=== PATIENT | female | born 1935 | race Caucasian/White ===

== ENCOUNTER → 2017-10-14 | Outpatient (CLI) | payer OTHER ==
[~2017-10-14] MED LIST: AMLO5 PO; CALCIT950; CALMAGZIN PO; ESTMED1.5T; Echinacea & Go1 EACH PO; Estradiol0.5 MG PO; Flomax0.4 MG PO; GINKGO BILOBA30 MG PO; GLUCHON; HAIR, SKIN & N1 EAC1 PO; Hair, Skin & N1 EACH PO; LEG CRAMP RELIEF PO; LEVE500; MACULAR PROTECT PO; MAGN84; MEDR2.5; MEDR2.5 PO; MELA3 PO; MSM1000; MULVITMINF; PRAV20 PO; Percocet 5-3251 EACH PO; TOCO1000; TRAM50; VITAMIN B12-FO1 EACH PO; Vitamin D400 UNI1 PO; Zofran4 MG PO
== END | disposition home or self-care (01) ==
LOC: LAB SHORT 18:01 → LAB 18:01
DX: M54.9 Dorsalgia, unspecified (principal)
CPT/HCPCS: 87077; 87086; 87186

== ENCOUNTER 2018-04-10 05:42 | Emergency (ER) | payer MEDICARE, OTHER ==
[~2018-04-10] VITALS: Ht 162.6 cm; Wt 57.6 kg
[2018-04-10 06:32] LABS: BASOPHILS ABSOLUTE AUTO 0.04 K/mm3 (0.00-0.23); BASOPHILS PERCENT AUTO 1 % (0-2); EOSINOPHILS ABSOLUTE AUTO 0.18 K/mm3 (0.00-0.68); EOSINOPHILS PERCENT AUTO 4 % (0-6); Hematocrit 43.9 % (33.0-51.0); Hemoglobin 14.8 g/dL (11.5-16.0); IMMATURE GRAN ABSOLUTE AUTO 0.01 K/mm3 (0.00-0.10); IMMATURE GRAN PERCENT AUTO 0 % (0-1); LYMPHOCYTES ABSOLUTE AUTO 0.95 K/mm3 (0.84-5.20); LYMPHOCYTES PERCENT AUTO 19 % (21-46); MONOCYTES ABSOLUTE AUTO 0.51 K/mm3 (0.16-1.47); MONOCYTES PERCENT AUTO 10 % (4-13); Mean Corpuscular HGB 32.2 pg (26.0-34.0); Mean Corpuscular HGB Conc 33.7 g/dL (31.5-36.5); Mean Corpuscular Volume 96 fL (80-100); NEUTROPHILS ABSOLUTE AUTO 3.28 K/mm3 (1.96-9.15); NEUTROPHILS PERCENT AUTO 66 % (41-73); Platelet Count 209 K/mm3 (150-400); RDW Coefficient Variation 12.3 % (11.7-14.2); RDW Standard Deviation 43.4 fL (35.1-46.3); Red Blood Cell Count 4.59 M/mm3 (3.80-5.20); White Blood Cell Count 4.97 K/mm3 (4.00-11.30)
[2018-04-10 06:51] LABS: Anion Gap 7 mmol/L (6-16); Blood Urea Nitrogen 16 mg/dL (8-24); CO2, Blood 25 mmol/L (21-32); Calcium, Blood 9.6 mg/dL (8.5-10.1); Chloride, Blood 110 mmol/L (98-108); Creatinine, Blood 0.59 mg/dL (0.40-1.00); Glomerular Filtration Rate >60 (60-); Glucose, Blood 97 mg/dL (70-99); Potassium, Blood 3.9 mmol/L (3.5-5.5); Sodium, Blood 142 mmol/L (136-145)
[2018-04-10 08:36] LABS: Source, Urine Catheter
[2018-04-10 08:39] LABS: Bilirubin, Urine Neg (Neg); Blood, Urine Neg (Neg); Glucose Qualitative, Urine Neg (Neg); Ketones, Urine Neg (Neg); Leukocyte Esterase, Urine Neg (Neg); Nitrite, Urine Neg (Neg); Protein, Urine Neg (Neg); Urobilinogen, Urine NORM (Normal)
[2018-04-10 09:11] LABS: Appearance, Urine Hazy (Clear); Color, Urine Yellow (P-Yellow)
[2018-04-10 09:12] LABS: Amorphous Mod (0-Heavy); Bacteria Not Seen /hpf; Red Blood Cells, Urine Not Seen /hpf (0-2); Squamous Epithelial Cells Not Seen /hpf (Few); White Blood Cells, Urine 0-2 /hpf (0-5)
== END 2018-04-10 09:45 | disposition home or self-care (01) ==
LOC: ER 05:42
PROVIDERS: Emergency Medicine
DX: M25.552 Pain in left hip (principal); M25.551 Pain in right hip; M79.644 Pain in right finger(s); R07.89 Other chest pain; I10 Essential (primary) hypertension; G40.909 Epilepsy, unspecified, not intractable, without status epilepticus; Z79.899 Other long term (current) drug therapy; K21.9 Gastro-esophageal reflux disease without esophagitis; W18.30XA Fall on same level, unspecified, initial encounter
CPT/HCPCS: 71111; 72170; 80048; 81001; 85025; 99284-25; P9612

== ENCOUNTER → 2018-04-28 | Outpatient (CLI) | payer OTHER ==
[2018-04-28 19:25] LABS: Bilirubin, Urine Neg (Neg); Blood, Urine Neg (Neg); Glucose Qualitative, Urine Neg (Neg); Ketones, Urine Neg (Neg); Leukocyte Esterase, Urine 1+ (Neg); Nitrite, Urine Neg (Neg); Protein, Urine Neg (Neg); Specific Gravity, Urine 1.015 (1.003-1.022); Urobilinogen, Urine NORM (Normal); pH, Urine 6.5 (5.0-8.0)
[2018-04-28 19:59] LABS: Appearance, Urine Hazy (Clear); Color, Urine Yellow (P-Yellow)
[2018-04-28 20:00] LABS: Bacteria Rare /hpf; Calcium Oxalate Crystals Mod /hpf; Red Blood Cells, Urine Not Seen /hpf (0-2); Squamous Epithelial Cells Many /hpf (Few); White Blood Cells, Urine 0-2 /hpf (0-5)
== END | disposition home or self-care (01) ==
LOC: LAB 18:18 → LAB SHORT 18:18
DX: M54.9 Dorsalgia, unspecified (principal)
CPT/HCPCS: 81001; 87077; 87086; 87186

== ENCOUNTER → 2018-06-16 | Outpatient (CLI) | payer OTHER ==
[~2018-06-16] MED LIST changes: +ALPR.25 PO; +Keppra750 MG PO; -LEVE500
[2018-06-18 16:06] LABS: HPV 16 Negative (Negative); HPV 18 Negative (Negative); HPV OTHER HR TYPES Negative (Negative)
== END | disposition home or self-care (01) ==
LOC: LAB SHORT 17:32 → LAB 17:32
PROVIDERS: Nurse Practitioner Women's Health
DX: Z12.4 Encounter for screening for malignant neoplasm of cervix (principal)
CPT/HCPCS: 87624; G0123

== ENCOUNTER 2018-08-15 12:03 | Emergency (ER) | payer OTHER ==
[~2018-08-15] VITALS: Ht 157.5 cm; Wt 68.0 kg
[2018-08-15 12:44] LABS: Source, Urine Catheter
[2018-08-15 12:48] LABS: BASOPHILS ABSOLUTE AUTO 0.04 K/mm3 (0.00-0.23); BASOPHILS PERCENT AUTO 1 % (0-2); EOSINOPHILS ABSOLUTE AUTO 0.14 K/mm3 (0.00-0.68); EOSINOPHILS PERCENT AUTO 3 % (0-6); Hematocrit 45.6 % (33.0-51.0); Hemoglobin 15.1 g/dL (11.5-16.0); IMMATURE GRAN ABSOLUTE AUTO 0.01 K/mm3 (0.00-0.10); IMMATURE GRAN PERCENT AUTO 0 % (0-1); LYMPHOCYTES PERCENT AUTO 20 % (21-46); MONOCYTES ABSOLUTE AUTO 0.48 K/mm3 (0.16-1.47); MONOCYTES PERCENT AUTO 10 % (4-13); Mean Corpuscular HGB 32.5 pg (26.0-34.0); Mean Corpuscular HGB Conc 33.1 g/dL (31.5-36.5); Mean Corpuscular Volume 98 fL (80-100); NEUTROPHILS PERCENT AUTO 66 % (41-73); Platelet Count 209 K/mm3 (150-400); RDW Coefficient Variation 12.3 % (11.7-14.2); RDW Standard Deviation 44.3 fL (35.1-46.3); Red Blood Cell Count 4.65 M/mm3 (3.80-5.20); White Blood Cell Count 4.97 K/mm3 (4.00-11.30)
[2018-08-15 12:52] LABS: Bilirubin, Urine Neg (Neg); Blood, Urine Neg (Neg); Glucose Qualitative, Urine Neg (Neg); Ketones, Urine Neg (Neg); Leukocyte Esterase, Urine 1+ (Neg); Nitrite, Urine Neg (Neg); Protein, Urine Neg (Neg); Urobilinogen, Urine NORM (Normal)
[2018-08-15 13:03] LABS: Appearance, Urine Clear (Clear); Color, Urine Yellow (P-Yellow); White Blood Cells, Urine 0-2 /hpf (0-5)
[2018-08-15 13:04] LABS: Bacteria Rare /hpf; Red Blood Cells, Urine 0-2 /hpf (0-2); Squamous Epithelial Cells Few /hpf (Few)
[2018-08-15 13:10] LABS: Alanine Aminotransfer (ALT/SGP 28 U/L (12-78); Albumin/Globulin Ratio 1.1 (0.8-1.8); Alk Phos 64 U/L (50-136); Anion Gap 7 mmol/L (6-16); Aspartate Aminotrans (AST/SGOT 18 U/L (12-37); Bilirubin, Total 0.4 mg/dL (0.1-1.0); Blood Urea Nitrogen 18 mg/dL (8-24); Bun/Creatinine Ratio 27.4 (12.0-20.0); CO2, Blood 26 mmol/L (21-32); Calcium, Blood 9.6 mg/dL (8.5-10.1); Chloride, Blood 109 mmol/L (98-108); Creatinine, Blood 0.66 mg/dL (0.40-1.00); Globulin, Blood 3.8 g/dL (2.2-4.0); Glomerular Filtration Rate >60 (60-); Glucose, Blood 102 mg/dL (70-99); Sodium, Blood 142 mmol/L (136-145); Total Protein, Blood 7.8 g/dL (6.4-8.2)
== END 2018-08-15 14:40 | disposition home or self-care (01) ==
LOC: ER 12:03
PROVIDERS: Emergency Medicine
DX: R53.1 Weakness (principal); I10 Essential (primary) hypertension; G40.909 Epilepsy, unspecified, not intractable, without status epilepticus; F03.90 Unspecified dementia, unspecified severity, without behavioral disturbance, psychotic disturbance, mood disturbance, and anxiety; Z85.3 Personal history of malignant neoplasm of breast; Z91.018 Allergy to other foods; Z91.09 Other allergy status, other than to drugs and biological substances; Z79.899 Other long term (current) drug therapy
CPT/HCPCS: 36415; 51701; 70450; 80053; 81001; 85025; 87086; 93005; 93010; 99285-25

== ENCOUNTER 2019-01-15 17:31 | Emergency (ER) | payer OTHER ==
[~2019-01-15] VITALS: Ht 160 cm; Wt 63.5 kg
[2019-01-15 18:12] LABS: BASOPHILS ABSOLUTE AUTO 0.04 K/mm3 (0.00-0.23); BASOPHILS PERCENT AUTO 1 % (0-2); EOSINOPHILS ABSOLUTE AUTO 0.14 K/mm3 (0.00-0.68); EOSINOPHILS PERCENT AUTO 3 % (0-6); Hematocrit 38.5 % (33.0-51.0); Hemoglobin 12.8 g/dL (11.5-16.0); IMMATURE GRAN ABSOLUTE AUTO 0.01 K/mm3 (0.00-0.10); IMMATURE GRAN PERCENT AUTO 0 % (0-1); LYMPHOCYTES ABSOLUTE AUTO 1.06 K/mm3 (0.84-5.20); LYMPHOCYTES PERCENT AUTO 23 % (21-46); MONOCYTES ABSOLUTE AUTO 0.58 K/mm3 (0.16-1.47); MONOCYTES PERCENT AUTO 13 % (4-13); Mean Corpuscular HGB 33.2 pg (26.0-34.0); Mean Corpuscular HGB Conc 33.2 g/dL (31.5-36.5); Mean Corpuscular Volume 100 fL (80-100); Mean Platelet Volume 10.6 fL (9.1-12.4); NEUTROPHILS ABSOLUTE AUTO 2.75 K/mm3 (1.96-9.15); NEUTROPHILS PERCENT AUTO 60 % (41-73); Platelet Count 225 K/mm3 (150-400); RDW Coefficient Variation 12.6 % (11.7-14.2); RDW Standard Deviation 46.4 fL (35.1-46.3); Red Blood Cell Count 3.86 M/mm3 (3.80-5.20); White Blood Cell Count 4.58 K/mm3 (4.00-11.30)
[2019-01-15 18:25] LABS: Alanine Aminotransfer (ALT/SGP 29 U/L (12-78); Albumin, Blood 3.9 g/dL (3.4-5.0); Alk Phos 64 U/L (50-136); Anion Gap 6 mmol/L (6-16); Aspartate Aminotrans (AST/SGOT 18 U/L (12-37); Bilirubin, Total 0.4 mg/dL (0.1-1.0); Blood Urea Nitrogen 29 mg/dL (8-24); Bun/Creatinine Ratio 36.7 (12.0-20.0); CO2, Blood 25 mmol/L (21-32); Chloride, Blood 109 mmol/L (98-108); Creatinine, Blood 0.79 mg/dL (0.40-1.00); Glomerular Filtration Rate >60 (60-); Glucose, Blood 121 mg/dL (70-99); Potassium, Blood 3.8 mmol/L (3.5-5.5); Sodium, Blood 140 mmol/L (136-145); Total Protein, Blood 7.9 g/dL (6.4-8.2)
[2019-01-15 19:56] LABS: Source, Urine Clean Catch
[2019-01-15 20:01] LABS: Bilirubin, Urine Neg (Neg); Blood, Urine 3+ (Neg); Glucose Qualitative, Urine Neg (Neg); Ketones, Urine Neg (Neg); Leukocyte Esterase, Urine Neg (Neg); Nitrite, Urine Neg (Neg); Protein, Urine 1+ (Neg); Urobilinogen, Urine NORM (Normal)
[2019-01-15 20:08] LABS: Amorphous Light (0-Heavy); Appearance, Urine Hazy (Clear); Bacteria Few /hpf; Color, Urine Yellow (P-Yellow); Mucus Light (0-Heavy); Red Blood Cells, Urine 25-50 /hpf (0-2); Squamous Epithelial Cells Many /hpf (Few); White Blood Cells, Urine 0-2 /hpf (0-5)
== END 2019-01-15 22:31 | disposition home or self-care (01) ==
LOC: ER 17:31
PROVIDERS: Internal Medicine
DX: R41.0 Disorientation, unspecified (principal); L98.9 Disorder of the skin and subcutaneous tissue, unspecified; I10 Essential (primary) hypertension; F03.90 Unspecified dementia, unspecified severity, without behavioral disturbance, psychotic disturbance, mood disturbance, and anxiety; Z85.3 Personal history of malignant neoplasm of breast; Z91.018 Allergy to other foods; Z91.048 Other nonmedicinal substance allergy status; Z79.899 Other long term (current) drug therapy
CPT/HCPCS: 36415; 70450; 80053; 81001; 85025; 93005; 93010; 99285-25; A9270-GY

== ENCOUNTER → 2019-06-17 | Outpatient (CLI) | payer OTHER ==
[2019-06-17 17:13] LABS: Bilirubin, Urine Neg (Neg); Blood, Urine Neg (Neg); Glucose Qualitative, Urine Neg (Neg); Ketones, Urine Neg (Neg); Leukocyte Esterase, Urine Neg (Neg); Nitrite, Urine Pos (Neg); Protein, Urine Neg (Neg); Urobilinogen, Urine NORM (Normal)
[2019-06-17 17:33] LABS: Appearance, Urine Hazy (Clear); Color, Urine Yellow (P-Yellow)
[2019-06-17 17:38] LABS: Amorphous Mod (0-Heavy); Bacteria Rare /hpf; Red Blood Cells, Urine Not Seen /hpf (0-2); Squamous Epithelial Cells Few /hpf (Few); White Blood Cells, Urine Not Seen /hpf (0-5)
== END | disposition home or self-care (01) ==
LOC: LAB SHORT 15:23 → LAB 15:23
DX: N39.0 Urinary tract infection, site not specified (principal)
CPT/HCPCS: 81001; 87077; 87086; 87186

== ENCOUNTER 2019-07-01 20:58 | Inpatient (IN) | payer OTHER ==
[~2019-07-01] VITALS: Ht 167.6 cm; Wt 77.1 kg
[~2019-07-01 20:58] MED LIST changes: -MEDR2.5
[2019-07-01] MEDS ORDERED: IBU600 MG PO (21:59)
[2019-07-01 23:19] LABS: Source, Urine Clean Catch
[2019-07-01 23:23] LABS: Bilirubin, Urine Neg (Neg); Blood, Urine Neg (Neg); Glucose Qualitative, Urine Neg (Neg); Ketones, Urine Neg (Neg); Leukocyte Esterase, Urine 2+ (Neg); Nitrite, Urine Neg (Neg); Protein, Urine Neg (Neg); Urobilinogen, Urine NORM (Normal)
[2019-07-01 23:24] LABS: Appearance, Urine Hazy (Clear); Color, Urine Yellow (P-Yellow)
[2019-07-01 23:30] LABS: Amorphous Heavy (0-Heavy); Bacteria Mod /hpf; Red Blood Cells, Urine Not Seen /hpf (0-2); Squamous Epithelial Cells Not Seen /hpf (Few)
[2019-07-02 01:18] LABS: BASOPHILS ABSOLUTE AUTO 0.02 K/mm3 (0.00-0.23); BASOPHILS PERCENT AUTO 0 % (0-2); EOSINOPHILS ABSOLUTE AUTO 0.02 K/mm3 (0.00-0.68); EOSINOPHILS PERCENT AUTO 0 % (0-6); Hematocrit 36.8 % (33.0-51.0); Hemoglobin 12.3 g/dL (11.5-16.0); IMMATURE GRAN ABSOLUTE AUTO 0.07 K/mm3 (0.00-0.10); IMMATURE GRAN PERCENT AUTO 1 % (0-1); LYMPHOCYTES ABSOLUTE AUTO 0.78 K/mm3 (0.84-5.20); LYMPHOCYTES PERCENT AUTO 8 % (21-46); MONOCYTES ABSOLUTE AUTO 0.64 K/mm3 (0.16-1.47); MONOCYTES PERCENT AUTO 6 % (4-13); Mean Corpuscular HGB 31.8 pg (26.0-34.0); Mean Corpuscular HGB Conc 33.4 g/dL (31.5-36.5); Mean Corpuscular Volume 95 fL (80-100); Mean Platelet Volume 10.3 fL (9.1-12.4); NEUTROPHILS ABSOLUTE AUTO 8.55 K/mm3 (1.96-9.15); NEUTROPHILS PERCENT AUTO 85 % (41-73); Platelet Count 196 K/mm3 (150-400); RDW Coefficient Variation 12.9 % (11.7-14.2); RDW Standard Deviation 45.7 fL (35.1-46.3); Red Blood Cell Count 3.87 M/mm3 (3.80-5.20); White Blood Cell Count 10.08 K/mm3 (4.00-11.30)
[2019-07-02 01:39] LABS: Alanine Aminotransfer (ALT/SGP 19 U/L (12-78); Albumin, Blood 3.7 g/dL (3.4-5.0); Albumin/Globulin Ratio 0.9 (0.8-1.8); Alk Phos 82 U/L (50-136); Anion Gap 10 mmol/L (6-16); Aspartate Aminotrans (AST/SGOT 19 U/L (12-37); Bilirubin, Total 0.8 mg/dL (0.1-1.0); Blood Urea Nitrogen 18 mg/dL (8-24); CO2, Blood 20 mmol/L (21-32); Calcium, Blood 9.2 mg/dL (8.5-10.1); Chloride, Blood 111 mmol/L (98-108); Creatinine, Blood 0.78 mg/dL (0.40-1.00); Globulin, Blood 3.9 g/dL (2.2-4.0); Glomerular Filtration Rate >60 (60-); Glucose, Blood 139 mg/dL (70-99); Potassium, Blood 3.7 mmol/L (3.5-5.5); Sodium, Blood 141 mmol/L (136-145); Total Protein, Blood 7.6 g/dL (6.4-8.2)
[2019-07-02] MEDS ORDERED: Oyster Shell C500 MG PO (04:03)
[2019-07-02] MEDS ORDERED: DOCU100 PO (04:06)
[2019-07-02] MEDS ORDERED: Echinacea80 MG PO (04:08)
[2019-07-02] MEDS ORDERED: ESCI10 PO (04:11)
[2019-07-02] MEDS ORDERED: GINKGO BILOBA30 MG PO (05:06)
[2019-07-02] MEDS ORDERED: MAGNESIUM OXID500 MG PO (05:11)
[2019-07-02] MEDS ORDERED: LOPE2C PO (05:12)
[2019-07-02] MEDS ORDERED: LOPE2C (05:13)
[2019-07-02] MEDS ORDERED: MEDR5 PO (05:15)
[2019-07-02] MEDS ORDERED: MELATONIN5 M1 PO (05:17)
[2019-07-02] MEDS ORDERED: Vitamin B-121000 MCG PO (05:18)
[2019-07-02] MEDS ORDERED: VITAMIN D325 MCG PO (05:20)
--- NOTE | 2019-07-02 07:26 | NUR ---
SHIFT SUMMARY PT WAS A NEW ADMIT DURING THE NIGHT. SHE WAS ADMITTED AFTER AN UNWITNESSED FALL AT [facility]. PT HAS DEMENTIA, AND YELLS AND SCREAMS WHENEVER TOUCHED OR CARE IS ATTEMPTED. ON ADMISSION, PT WAS INCONSOLIBLE AND HAD ALREADY RECEIVED PAIN MEDS. THE HOSPITALIST DR MCNEILL ORDERED A OT DOSE OF ATIVAN. PT SLEPT WELL AFTER MEDICATING. SHE WAS MEDICATED ONCE FOR RUE PAIN THIS AM WITH PRN IV MORPHINE. VITALS STABLE. JONES PATENT AND DRAINING. NO OTHER ACUTE CHANGES IN PT CONDITION NOTED SINCE ADMISSION. REPORT GIVEN TO ONCOMING RN.
--- NOTE | 2019-07-02 16:24 | NUR ---
Initial spiritual care note: Mrs. Nelson was sleeping. she opened eyes briefly to voice, but could not stay awake or engage. She appears comfortable and peaceful. Prayed at bedisde. I will remain available.
--- NOTE | 2019-07-02 17:36 | NUR ---
SUMMARY PT RESTING QUIETLY IN BED, SCREAMS AND CALLS OUT WHEN ANY CARES DONE WITH HER, PT HAD TO BE FED BREAKFAST, PT REFUSED LUNCH, PT MED PER EMAR FOR PAIN, R SHOULDER IMMOBILIZER PLACED, SPOKE WITH SPOUSE ON THE PHONE, CARE MANAGEMENT SPOKE WITH THE SON ON THE PHONE, POSSIBILE DC BACK TO [facility] TOMORROW, VSS, WILL CONT TO MONITOR
--- NOTE | 2019-07-02 23:43 | NUR ---
PT APPEARS SCARED, ANXIOUS, UNCOMFORTABLE. PUSHING STAFF AWAY. VERY RESTLESS. PT REMOVING CLOTHES, ATTENDS, AND BEDDING. NOT REDIRECTABLE. PT SPIT MEDS OUT. NOT SWALLOWING FLUIDS OR APPLESAUCE. ALPRAZOLAM PO GIVEN DISSOLVED IN WATER INTO PT'S CHEEK W/LITTLE EFFECT. CALL TO HOSPITALIST CAMILA STANFORD NP. RECIEVED ORDER FOR ONE TIME ATIVAN AND IV KEPPRA DUE TO SPITTING HS KEPPRA DOSE OUT.
--- NOTE | 2019-07-03 06:44 | NUR ---
SHIFT SUMMARY: VSS. AFEB. A/OX1. SLEPT THROUGH MOST OF THE NIGHT EXCEPT WHEN INTERACTED WITH. MORPHINE ADMINISTERED FOR CRYING, MOANING AND HOLDING R SHOULDER YELLING "NO" AT STAFF INDICATION OF PAIN, HELPFUL. F/C PATENT AND DRAINING CLEAR, DARK YELLOW URINE TO GRAVITY. BED LOW, BED ALARM ON, FREQUENT CHECKS. PT DOES NOT CALL OUR OR USE CALL BUTTON WHEN IN NEED OF ASSIST. NO ACUTE CHANGES OVERNIGHT. WILL CONT TO MONITOR.
--- NOTE | 2019-07-03 10:30 | NUR ---
Initial palliative care consult: Lilly is an 83 year old with a history of severe dementia, seizures, HTN, right breast cancer. She lives at [facility] and had a fall. She currently has a right humeral fracture and an acute on chronic subdural hematoma. She currently has an immobilizer on her right arm. Lilly appeared very uncomfortable when this typewriter assembly and parts inspector entered her room. She is attempting to remove the immobilizer and is laying sideways in her bed. Left inner forearm IV site is infiltrated. IVF stopped and IV dc'd intact. Restarted a new IV in the outer left forearm with assistance from the BSS SOLUTION ARCHITECT. Lilly is tachypnic and appears to be painful. Nursing notified of IV infiltration, new IV and pt's pain. Nursing medicated pt for pain with IV pain medication. Pt appeared much less anxious and her respirations became less labored after pain medication was administered. Will plan to contact MD for PO pain med alternative. Nursing reports plan it to manage pt's humeral fracture with immobilizer and no surgical intervention. PC to remain available for symptom management.
--- NOTE | 2019-07-03 12:03 | NUR ---
UPDATED SON SPOKE WITH CLARENCE VILLALPANDO ON THE PHONE, UPDATED HIM THAT THE PT WILL BE STAYING FOR A FEW DAYS FOR IV ANTIBIOTICS
--- NOTE | 2019-07-03 17:02 | NUR ---
SUMMARY PT REMAINS CONFUSED T/O THE DAY, CALLS OUT AND YELLS WHENEVER ANY CARES ARE DONE, PT NEEDS TO BE FED, TAKES PILLS CRUSHED IN APPLESAUCE AFTER COAXING, SPOKE WITH HER SON KWASI ON THE PHONE TODAY WITH UPDATES, PT CONT TO PULL OFF THE SHOULDER IMMOBILIZER, DOES NOT ALLOW FOR IT TO BE PLACED BACK ON DESPITE MULTIPLE ATTEMPTS, PT CALMER WITH IT OFF, PT RESISTANT TO CARES AT TIMES, VSS, WILL CONT TO MONITOR
--- NOTE | 2019-07-03 19:00 | NUR ---
ASSUMED CARE RECEIVED REPORT FROM CARLA PERKINS. ASSUMED CARE OF PT. COMFORTABLE WHEN UNDISTURBED, SCREAMS AT STAFF WITH CARES AND REPOSITIONING. NO S/S ACUTE DISTRESS NOTED AT THIS TIME, ASSISTED TO REPOSITION IN BED, REPLACE ATTENDS PULLED OFF BY PT. PT LEFT IN POSITION OF COMFORT, CALL LIGHT IN REACH, BED IN LOWEST POSITION WITH ALARMS ON. WILL CONTINUE TO MONITOR.
--- NOTE | 2019-07-03 22:00 | NUR ---
2200 THIS RN IN ROOM FINDING PT CARE HOME OOB, CLIMBING OVER SIDERAILS. THIS RN HAD PREVIOUSLY MEDICATED FOR S/S PAIN. THIS RN AND SECOND RN IN ROOM REPOSITIONING PT, ELECT EQUIP MAINT ENG THEN ENTERED ROOM. PT SCREAMING AT STAFF, FLAILING ARMS AND PUSHING STAFF AWAY. DRYWALL SPRAYER IN ROOM ASSESSING SITUATION. DISCUSSED NEED FOR PT TO BE TRANSPORTED TO THE SC[facility] FOR FURTHER MONITORING. THIS RN SPEAKING TO VY JENSEN, REGARDING PT'S BEHAVIOR. ORDERS RECEIVED. REPORT GIVEN TO CARLA DENISE.
--- NOTE | 2019-07-03 22:40 | NUR ---
PATIENT TRANSFER FROM ROOM 342. REPORT RECEIVED FROM PATRICK AGUIRRE.
--- NOTE | 2019-07-03 22:59 | NUR ---
PATIENT RESTING IN BED AFTER IV ATIVAN 0.5 MG GIVEN PRIOR TO TRANSFER. PATIENT NOT SCREAMING AT THIS TIME. ADVANCE DEMENTIA. BED ALARM ACTIVATED.
--- NOTE | 2019-07-04 03:47 | NUR ---
SHIFT SUMMARY PATIENT HAD NO ACUTE CHANGES OBSERVED. TRANSFER FROM ROOM 342. NOT ORIENTED WITH HX ADVANCED DEMENTIA. BEDREST. PIV REMAINS INTACT. PATIENT RECEIVED 0.5 MG IV ATIVAN PRIOR TO ROOM TRANSFER AND ABLE TO SLEEP. NO SCREAMING AT THIS TIME. REFUSED RIGHT SHOULDER IMMOBILIZER. TAKES MEDICATION CRUSHED IN APPLE SAUCE. VSS/AFEBRILE. NO BP ON RIGHT ARM. NO S/SX OF SOB AND N/V. BED ALARM ACTIVATED. CALL LIGHT IN REACH. BED IN LOWEST POSITION. WILL CONTINUE TO MONITOR UNTIL DAY SHIFT NURSE ASSUMES CARE.
[2019-07-04 07:06] LABS: BASOPHILS ABSOLUTE AUTO 0.02 K/mm3 (0.00-0.23); BASOPHILS PERCENT AUTO 0 % (0-2); EOSINOPHILS ABSOLUTE AUTO 0.03 K/mm3 (0.00-0.68); EOSINOPHILS PERCENT AUTO 0 % (0-6); Hematocrit 37.8 % (33.0-51.0); Hemoglobin 12.4 g/dL (11.5-16.0); IMMATURE GRAN ABSOLUTE AUTO 0.02 K/mm3 (0.00-0.10); IMMATURE GRAN PERCENT AUTO 0 % (0-1); LYMPHOCYTES ABSOLUTE AUTO 1.11 K/mm3 (0.84-5.20); LYMPHOCYTES PERCENT AUTO 16 % (21-46); MONOCYTES ABSOLUTE AUTO 0.58 K/mm3 (0.16-1.47); MONOCYTES PERCENT AUTO 8 % (4-13); Mean Corpuscular HGB 31.4 pg (26.0-34.0); Mean Corpuscular HGB Conc 32.8 g/dL (31.5-36.5); Mean Corpuscular Volume 96 fL (80-100); Mean Platelet Volume 10.3 fL (9.1-12.4); NEUTROPHILS ABSOLUTE AUTO 5.19 K/mm3 (1.96-9.15); NEUTROPHILS PERCENT AUTO 75 % (41-73); Platelet Count 201 K/mm3 (150-400); RDW Coefficient Variation 12.7 % (11.7-14.2); RDW Standard Deviation 45.2 fL (35.1-46.3); Red Blood Cell Count 3.95 M/mm3 (3.80-5.20); White Blood Cell Count 6.95 K/mm3 (4.00-11.30)
--- NOTE | 2019-07-04 14:34 | NUR ---
Clinical Visit: Pt resting comfortably. She has been given ativan and morphine for treatment of anxiety and pain. Nurse states that she has been sleeping restfully since medication. Without medication treatment, pt is very restless and scared. She has no orientation to where she is, and does not recognize anyone around her. Additionally, she is in extreme pain when untreated with pain medications. Pt was given Denver once by the nurse today with minimal, short term relief. Morphine seems to help the pt most with her discomfort at this time. Call placed to the pt's son, Jose. Questions regarding care are answered. He is very concerned about her wellbeing and states that his father is very distressed over not being able to see her for the last two months for COVID precautions. Reviewed the pt's symptoms with Jose. He is requesting a muscle relaxer so that "she would be too weak to do anything that would hurt herself." Reviewed the medications given at this time. Instructed that Ativan has been given for anxiety. He is concerned about narcotic medications. Denver and morphine reviewed. Pt has required narcotics for the amount of pain she has been in. The hope is that she will gradually wean off of those medications as she heals. Pt is a full assist at meals and requires maximum help to eat. She cannot get the spoon or fork to her mouth and this has to be done for her. Discussed advanced care planning. Reviewed hospice qualifications for dementia patients and trajectory of disease process. He is open to the discussion and asks questions. Instructed to discuss with pt's PCP about when it would be appropriate to start a hospice care plan. Reviewed nurse visits, philosophy, and symptom management. Instructed that if this injury causes extraordinary pain and suffering, then hospice can help treat symptoms. Pt is at end stage disease at this time and would qualify. This information is also given to the son. Pt has an appropriate POLST form on file. Palliative care will remain available for symptom management. Pt does not swallow medications well, so pt may benefit from liquid, SL forms of ativan and morphine if discharged with pain issues and this is the only medication that is effective.
--- NOTE | 2019-07-04 15:25 | NUR ---
PT NOTED TO HAVE VERY POOR ORAL INTAKE, PT HAS NOT VOIDED YET THIS SHIFT. BLADDER SCAN X2 COMPLETED WITH RESULTS OF 233 AND [address]ML[address] SPO[address] AWAN AND ORDERS RECEIVED FOR NS AT 100ML/HR AT THIS TIME.
--- NOTE | 2019-07-04 16:40 | NUR ---
SHIFT SUMMARY- PT ORIENTED TO SELF ONLY. PT FEARFUL AND CRIES OUT WHENEVER TOUCHED. PRN ATIVAN GIVEN X1, PRN MORPHINE AND NORCO GIVEN X1 FOR PAIN TO SYED. PT PULLS ON IMMOBILIZER FREQUENTLY. LS CLEAR/ DIMINISHED IN THE BASES, ON RA. ABD MODERATE DISTENTION. PT HAS VERY POOR PO INTAKE, NEEDS FEEDING ASSISTANCE. BLADDER SCAN OF 233 AND 304 DONT THIS SHIFT. PT STARTED ON NS AT 100ML/HR. PALLIATIVE CARE CONSULTED AND CALLED AND SPOKE WITH SON. PLAN FOR PT TO RETURN TO [facility] ON SATURDAY. NO OTHER ACUTE CHANGES THIS SHIFT.
--- NOTE | 2019-07-04 22:19 | NUR ---
PATIENT RESTLESS IN BED WITH ANXIETY. SIGNS OF PAIN TO RIGHT SHOULDER. IV ATIVAN 0.5 MG GIVEN AND IV MORPHINE 2 MG GIVEN PER EMAR. PATIENT NOT COMMUNICATING AT THIS TIME. PATIENT SWINGS LEGS OVER GUARD RAIL AND BACK REPEATING. BED ALARM ACTIVATED. WILL CONTINUE TO MONITOR.
--- NOTE | 2019-07-05 04:28 | NUR ---
SHIFT SUMMARY PATIENT HAD NO ACUTE CHANGES OBSERVED. AXOX TO SELF,BEDREST AND NON COMMUNICATING. PATIENT FEARFUL WITH ANXIETY. IV ATIVAN AND IV MORPHINE GIVEN FOR ANXIETY AND PAIN TO SYED. PIV REMAINS INTACT. NS INFUSING AT 100ML/HR. IV KEPPRA INFUSED PER EMAR. VSS/AFEBRILE. NO S/SX OF SOB AND N/V. HX ADVANCED DEMENTIA. BED ALARM ACTIVATED AND IN LOWEST POSITION. ON CAMERA. CALL LIGHT IN REACH. WILL CONTINUE TO MONITOR UNTIL DAY SHIFT NURSE ASSUMES CARE.
[2019-07-05 04:55] LABS: BASOPHILS ABSOLUTE AUTO 0.03 K/mm3 (0.00-0.23); BASOPHILS PERCENT AUTO 1 % (0-2); EOSINOPHILS PERCENT AUTO 2 % (0-6); Hematocrit 37.9 % (33.0-51.0); Hemoglobin 11.8 g/dL (11.5-16.0); IMMATURE GRAN ABSOLUTE AUTO 0.03 K/mm3 (0.00-0.10); IMMATURE GRAN PERCENT AUTO 1 % (0-1); LYMPHOCYTES PERCENT AUTO 14 % (21-46); MONOCYTES ABSOLUTE AUTO 0.64 K/mm3 (0.16-1.47); MONOCYTES PERCENT AUTO 11 % (4-13); Mean Corpuscular HGB 31.5 pg (26.0-34.0); Mean Corpuscular HGB Conc 31.1 g/dL (31.5-36.5); Mean Platelet Volume 10.2 fL (9.1-12.4); NEUTROPHILS ABSOLUTE AUTO 4.08 K/mm3 (1.96-9.15); NEUTROPHILS PERCENT AUTO 72 % (41-73); Platelet Count 188 K/mm3 (150-400); RDW Coefficient Variation 12.8 % (11.7-14.2); RDW Standard Deviation 47.9 fL (35.1-46.3); Red Blood Cell Count 3.75 M/mm3 (3.80-5.20); White Blood Cell Count 5.68 K/mm3 (4.00-11.30)
[2019-07-05 04:58] LABS: Mean Corpuscular Volume 101 fL (80-100)
--- NOTE | 2019-07-05 17:24 | NUR ---
SHIFT SUMMARY: AROUSES TO HER NAME AND SOUNDS, NOT ORIENTED, CANNOT ANSWER QUESTIONS, BUT DOES FOLLOW SOME COMMANDS. WAS IN CONSIDERABLE PAIN AT START OF SHIFT; IV SITE INFILTRATED, NEW IV SITE PLACED AND MORPHINE AND ATIVAN GIVEN WITH GOOD EFFECT. HAS GOOD BED MOBILITY, SCOOTS BACK ON TO HER BACK AND DOWN IN THE BED AFTER REPOSITIONING. WEARING TEDS. INCONT OF B&B, WEARING ATTENDS, NO BM THIS SHIFT. NEEDS FULL FEEDING ASSISTANCE. BREATHING IS SHALLOW AND TACHYPNEIC AT TIMES. IVF INFUSING WITHOUT INCIDENT. PLAN IS POSSIBLE D/C BACK TO [facility] TOMORROW.
--- NOTE | 2019-07-05 19:15 | NUR ---
Clinical Visit: Pt appears very uncomfortable. DIRECTOR OF STUDENT AID attempting to feed her. She is moaning and upset. She is agitated. Nurse to medicate. Pt qualifies for hospice care for end stage dementia. Will remain available.
--- NOTE | 2019-07-05 23:04 | NUR ---
CAMERA TECH REPORTS PATIENT TURNS HORIZONTAL IN BED X FIVE. PATIENT AGITATED AND IN PAIN. IV ATIVAN AND IV MORPHINE GIVEN PER EMAR. BED ALARM ACTIVE WILL CONTINUE TO MONITOR.
--- NOTE | 2019-07-06 04:15 | NUR ---
SHIFT SUMMARY PATIENT AGITATED AND FEARFUL FIRST HALF OF SHIFT. FACE PAIN SCALE USE FOR RIGHT SHOULDER PAIN ASSESSMENT. IV ATIVAN AND IV MORPHINE GIVEN PER EMAR. CAMERA MONITOR REPORTED PATIENT MOVED TO HORIZONTAL POSITION WITH LEGS OVER THE RAILS FIVE PLUS TIMES. PATIENT REPOSITIONED. NOT ABLE TO FOLLOW DIRECTIONS. HX ADVANCED DEMENTIA. PIV REMAINS INTACT. NS INFUSING AT 100mL/HR. IV KEPPRA INFUSED. PURSED LIP BREATHING. NON COMMUNICATING. BED IN LOWEST POSITION AND ALARM ACTIVATED. CALL LIGHT IN REACH. WILL CONTINUE TO MONITOR UNTIL DAY SHIFT NURSE ASSUMES ARE.
[2019-07-06 04:41] LABS: BASOPHILS ABSOLUTE AUTO 0.03 K/mm3 (0.00-0.23); BASOPHILS PERCENT AUTO 1 % (0-2); EOSINOPHILS ABSOLUTE AUTO 0.18 K/mm3 (0.00-0.68); EOSINOPHILS PERCENT AUTO 3 % (0-6); Hematocrit 37.7 % (33.0-51.0); Hemoglobin 12.6 g/dL (11.5-16.0); IMMATURE GRAN ABSOLUTE AUTO 0.03 K/mm3 (0.00-0.10); IMMATURE GRAN PERCENT AUTO 1 % (0-1); LYMPHOCYTES ABSOLUTE AUTO 0.98 K/mm3 (0.84-5.20); LYMPHOCYTES PERCENT AUTO 17 % (21-46); MONOCYTES ABSOLUTE AUTO 0.69 K/mm3 (0.16-1.47); MONOCYTES PERCENT AUTO 12 % (4-13); Mean Corpuscular HGB 31.8 pg (26.0-34.0); Mean Corpuscular HGB Conc 33.4 g/dL (31.5-36.5); Mean Platelet Volume 9.5 fL (9.1-12.4); NEUTROPHILS PERCENT AUTO 67 % (41-73); Platelet Count 209 K/mm3 (150-400); RDW Coefficient Variation 12.6 % (11.7-14.2); RDW Standard Deviation 44.4 fL (35.1-46.3); Red Blood Cell Count 3.96 M/mm3 (3.80-5.20); White Blood Cell Count 5.71 K/mm3 (4.00-11.30)
[2019-07-06 04:42] LABS: Mean Corpuscular Volume 95 fL (80-100)
[2019-07-06 05:02] LABS: Anion Gap 10 mmol/L (6-16); Blood Urea Nitrogen 6 mg/dL (8-24); Bun/Creatinine Ratio 12.2 (12.0-20.0); CO2, Blood 21 mmol/L (21-32); Calcium, Blood 8.5 mg/dL (8.5-10.1); Chloride, Blood 112 mmol/L (98-108); Creatinine, Blood 0.49 mg/dL (0.40-1.00); Glomerular Filtration Rate >60 (60-); Glucose, Blood 93 mg/dL (70-99); Potassium, Blood 3.3 mmol/L (3.5-5.5); Sodium, Blood 143 mmol/L (136-145)
[2019-07-06] MEDS ORDERED: ACET500 PO (10:32)
[2019-07-06] MEDS ORDERED: CEFP200 PO (10:35)
[2019-07-06] MEDS ORDERED: Norco 5-325 Ta1 EACH PO (10:37)
[2019-07-06] MEDS ORDERED: MIRALAX17 GM PO (10:38)
[2019-07-06] MEDS ORDERED: VISBIOME 112.51 EACH PO (10:38)
[2019-07-06] MEDS ORDERED: SENN187 PO (10:39)
--- NOTE | 2019-07-06 13:29 | NUR ---
COMFORT CARE COMFORT CARE INICIATED. PT COMFORTABLE AT THIS TIME, SLEEPING IN BED.
--- NOTE | 2019-07-06 13:47 | NUR ---
Comfort Care: Spoke with the pt's son. He has been in contact with Dmitri Mendieta. He reports that the nurse at [facility] was going to fax the pt's PCP with a referal for hospice care. Instructed that hospice can be planned in the pt's discharge from the hospital, so that everything is set up before she goes home. He states that he would prefer this plan. Reviewed pt's pain management. Comfort measures will be placed for improvement in symptoms with the hope that she is well managed with comfort medications before returning to [facility]. She has been requiring IV morphine everyday for pain control. Son is asking if he and his father can come see the pt tomorrow, this is acceptable. Pt's has not been able to see his for a couple months now, due to COVID19 quarentine and has been worried about her. It would be beneficial for the family to come see her and ask questions. Reviewed pt's prior condition of function complared to now. He is asking for adaptive utensils to be provided to her - instructed that pt has not been feeding herself for the duration of her hospital stay. She has been difficult to redirect and difficult to manage pain and anxiety. Call placed to Dr. Rubalcava. Comfort Measures orders placed. Spoke to nurse, Tawny, with update on care plan changes. Will remain available.
--- NOTE | 2019-07-06 15:00 | NUR ---
Clinical Visit: Pt resting in bed. She is moving her legs, but does not appear uncomfortable at this time. She has been medicated earlier today by nursing for pain and anxiety.
--- NOTE | 2019-07-06 16:28 | NUR ---
SHIFT SUMMARY PT TRANSITIONED TO COMFORT CARE THIS SHIFT. PT COMFORTABLE MOST THE SHIFT. THIS AFTERNOON PT BECAME VERY PAINFUL AND RESTLESS FOR ABOUT AN HOUR. PT NOW STARTING TO RELAX IN BED. PT SON UPDATED THIS SHIFT. PT ARM IN IMOBILIZER FOR COMFORT. WILL CONTINUE TO MONITOR UNTIL TURNOVER IS COMPLETE.
--- NOTE | 2019-07-06 19:24 | NUR ---
PT ON COMFORT CARE AND IS SLEEPING AT THIS TIME W/O S/S DISTRESS. RESPS E/U. NO PAIN OR ANXIETY NOTED. BED ALARM ON AND MUSIC PLAYING IN BACKGROUND.
--- NOTE | 2019-07-06 23:25 | NUR ---
PT HEARD CRYING AND MOANING AND DIFFICULT TO CONSOLE. SHE APPEARED PAINFUL AND ANXIOUS AND HAD PUSHED HER FOOT THROUGH THE BED RAIL. STAFF REPOSITIONED HER FOR IMPROVED COMFORT BUT A VERY SMALL SKIN TEAR WAS OBSERVED TO HER R.ROSE WHERE SHE'D SCRAPED HER LEG ON THE RAIL. PICS WERE TAKEN AND A BANDAID APPLIED. PT WAS MEDICATED FOR PAIN AND ANXIETY PRN.
--- NOTE | 2019-07-06 23:42 | NUR ---
IV BEGAN LEAKING DURING 10ML NS FLUSH FOLLOWING IV ATIVAN ADMINISTRATION. IV WAS DC'D AND NEW 22G IV PLACED TO L.WRIST FOR PRN COMFORT CARE MEDS. ROXINOL 20MG SL WAS ALSO RECIEVED AT THIS TIME FOR S/S PAIN AND AGGITATION. PT HAS NOW CALMED DOWN AND APPEARS MUCH MORE COMFORTABLE FOLLOWING MEDS SO IT IS ASSUMED THAT DOSE OF IV ATIVAN WAS EFFECTIVELY RECIEVED. WCTM AND MED PRN.
--- NOTE | 2019-07-07 04:43 | NUR ---
SUMMARY: PT REMAINS ON COMFORT CARE AND IS CONFUSED W/INABILITY TO SPECIFY NEEDS. SHE SLEPT MAJORITY OF SHIFT BUT AWAKENS VERY RESTLESS, INCONSOLABLE, ANXIOUS AND PAINFUL. 20MG ORAL ROXINOL AND ATIVAN 1MG IV RECIEVED PRN DURING THESE TIMES TO CALM AND IMPROVE COMFORT. SHE'S ON CAMERA MONITORING W/BED ALARM ON AND OCCASIONALLY THROWS LEGS OVER BEDRAILS. AT ONE POINT SHE GOT HER FOOT CAUGHT IN RAIL AND CAUSED NEW SKIN TEAR TO ROSE, PHOTOS TAKEN AND BANDAID APPLIED. REPOSITIONING ATTENDED TO AND ATTENDS CHANGED PRN. SHE TOOK LIQUID MEDS W/O DIFFICULTY BUT SPIT OUT CRUSHED MEDS IN APPLESAUCE. PT HAS DECREASED APPETITE W/MOUTH CARE PROVIDED. NO ACUTE CHANGES. WCTM AND REPORT TO DAY RN. PT JUNE D/C ON HOSPICE TO [facility].
--- NOTE | 2019-07-07 08:08 | NUR ---
PT APPEARS COMFORTABLE AT THIS TIME
--- NOTE | 2019-07-07 09:29 | NUR ---
PT CRIES OUT WITH POSITION CHANGES GAVE MORPHIN FOR PAIN
--- NOTE | 2019-07-07 11:55 | NUR ---
PT WAS GIVEN A BED BATH IN A GREAT DEAL OF PAIN WITH ANY MOVEMENT, ROXINOL 20MG GIVEN FOR PAIN
--- NOTE | 2019-07-07 14:07 | NUR ---
PT APPEARS TO BE SLEEPING/COMFORTABLE AT THIS TIME
--- NOTE | 2019-07-07 15:29 | NUR ---
PT WAS REPOSITIONED, CLEANED AND CHANGED, REPOSTIONING IS PAINFUL FOR THE PT AND THE PT WAS MEDICATED FOR PAIN
--- NOTE | 2019-07-07 16:22 | NUR ---
Initial spiritual carfe note: Mrs. Nelson is quite confused and unable to engage. She moans slighly, but does not appear to be in pain. I stroked her forehead, spoke calm words of assurance, and provided audible prayer. She appears well cared-for by nursing. I will remain available to pt and family.
--- NOTE | 2019-07-07 17:58 | NUR ---
PT MEDICATED FOR PAIN AT THIS TIME, FAMILY WAS IN TO SEE THE PT, THE PT WAS ABLE TO RESPOND TO HER FAMILY, THE PT SLEPT FOR MOST OF THE DAY, PT APPEARED TO BE COMFOTABLE FOR MOST OF THE DAY EXPECT FOR POSITION CHANGES, CALL LIGHT IN REACH WILL CONTINUE TO MONITOR AND ASSESS FOR CHANGES
--- NOTE | 2019-07-07 20:10 | NUR ---
and son into see pt. very frail and distraught he has not seen her in three months. supportive care of family and review of pt symptoms with nurisng.
--- NOTE | 2019-07-08 05:24 | NUR ---
SUMMARY: PT REMAINS ON COMFORT CARE AND IS MOSTLY NONVERBAL W/INABILITY TO SPECIFY NEEDS. SHE SLEPT MAJORITY OF SHIFT BUT OPENS EYES TO VOICE AND REACTS DURING REPOSITIONING AND ADL'S. TURN SCHEDULE WAS MAINTAINED W/HEEL PROTECTORS IN PLACE AND PILLOWS PROVIDED FOR SBD PREVENTION. SHE GRIMACES AND MOANS WHEN IN PAIN W/ROXINOL 20MG SL RECIEVED PRN X1. PT HASN'T BEEN RESTLESS AT ALL THIS SHIFT AND HASN'T THROWN LEGS OVER RAILS PREVIOUS. NO S/S ANXIETY OR AGGITATION OBSERVED SO PRN ATIVAN HASN'T BEEN REQUIRED. SHE TOLERATED LIQ MEDS BUT PO CRUSHED PILLS WERE HELD PER RN JUDGEMENT. RESP RATE SEEMS TO BE SLOWING BUT RESPS E/U AND NO ORAL SECRETIONS OBSERVED. PT IS PENDING D/C TO [facility] ON [facility] AND REPORT TO DAY RN.
--- NOTE | 2019-07-08 07:30 | NUR ---
PT APPEARS TO BE RESTING IN BED CALMLY
[2019-07-08] MEDS ORDERED: Fentanyl1 EAC4 TOP (10:52)
[2019-07-08] MEDS ORDERED: LORA1 PO (10:53)
[2019-07-08] MEDS ORDERED: MORP20L SL (10:54)
--- NOTE | 2019-07-08 13:37 | NUR ---
RESTING CLAMLY WITH AT BEDSIDE
--- NOTE | 2019-07-08 13:38 | NUR ---
PT AGITATED WITH NONVERBAL SIGNS OF PAIN. ROXANOL ADMINISTERED PER EMAR AND PERIPHERAL IV DC'D IN PREPARATION FOR DISCHARGE
--- NOTE | 2019-07-08 14:16 | NUR ---
pt discharged THE PT DISCHARGED TO [facility] ON HOSPICE CARE, THE PT WAS MEDICATED PRIOR TO DC WITH MORPHINE AND ATIVAN, PTS FAMILY WAS INFORMED OF THE TRANSFER, PT WAS TRANSFERED VIA STRETCHER ACCPMANIED BY [facility]
--- NOTE | 2019-07-08 16:41 | NUR ---
Routine spiritual care note: Mrs. Nelson was alone in room, opened eyes to touch, and did not respond verbally. she appears frail and sleepy. Stroked her forehead, assured her she was loved, and prayed. She is going home today.
== END 2019-07-08 14:00 | disposition hospice, home (50) | DRG 83 ==
LOC: ER 20:58 → MEDS 20:59
PROVIDERS: Emergency Medicine; Family Medicine; ADMIT Internal Medicine
DX: S06.5X9A Traumatic subdural hemorrhage with loss of consciousness of unspecified duration, initial encounter (principal); S42.201A Unspecified fracture of upper end of right humerus, initial encounter for closed fracture; N39.0 Urinary tract infection, site not specified; S00.83XA Contusion of other part of head, initial encounter; F03.90 Unspecified dementia, unspecified severity, without behavioral disturbance, psychotic disturbance, mood disturbance, and anxiety; Z85.3 Personal history of malignant neoplasm of breast; Z66 Do not resuscitate; B96.20 Unspecified Escherichia coli [E. coli] as the cause of diseases classified elsewhere; W19.XXXA Unspecified fall, initial encounter; Y93.9 Activity, unspecified; Y92.099 Unspecified place in other non-institutional residence as the place of occurrence of the external cause
CPT/HCPCS: 36415; 51702; 70450; 73030; 80048; 80053; 81001; 85025; 87077; 87086; 87186; 96361; 96365; 96366; 96367; 96372-59; 96374; 96375; 96376; 99285-25; A9270; A9270-GY; G0378; J0696; J1953; J2060; J2270; J3010; J7030; J7050